=== PATIENT | female | born 1975 | race Caucasian/White ===

== ENCOUNTER → 2017-11-29 | Outpatient (REF) | payer OTHER ==
[2017-11-29 13:38] LABS: BASO % 0.5 % (0.0-1.0); EOS # 0.1 10^3/uL (0.0-0.50); EOS % 1.9 % (0.0-3.0); HEMATOCRIT 41.8 % (36.0-47.0); HEMOGLOBIN 14.1 g/dl (12.0-15.5); IMMATURE GRANULOCYTE % 0.2 % (0-3.0); LYMPH # 1.6 10^3/uL (1.5-4.5); LYMPH % 26.8 % (24.0-44.0); MEAN CORPUSCULAR HEMOGLOBIN 31.5 pg (27.0-33.0); MEAN CORPUSCULAR HGB CONC 33.7 g/dl (32.0-36.5); MEAN CORPUSCULAR VOLUME 93.3 fl (80.0-96.0); MONO # 0.3 10^3/uL (0.0-0.8); MONO % 5.1 % (0.0-5.0); NEUTROPHILS # 3.9 10^3/uL (1.8-7.7); NEUTROPHILS % 65.5 % (36.0-66.0); PLATELET COUNT, AUTOMATED 269 10^3/uL (150-450); RED BLOOD COUNT 4.48 10^6/uL (4.00-5.40); WHITE BLOOD COUNT 5.9 10^3/uL (4.0-10.0)
[2017-11-29 14:03] LABS: ERYTHROCYTE SEDIMENTATION RATE 8 mm/hr (0-20)
[2017-11-29 19:42] LABS: ALBUMIN/GLOBULIN RATIO 1.21 (1.00-1.93); ALKALINE PHOSPHATASE 66 U/L (45-117); ALT/SGPT 16 U/L (12-78); ANION GAP 11 MEQ/L (8-16); AST/SGOT 11 U/L (7-37); BILIRUBIN,TOTAL 0.6 MG/DL (0.2-1.0); BLOOD UREA NITROGEN 11 MG/DL (7-18); CARBON DIOXIDE LEVEL 21 MEQ/L (21-32); CHLORIDE LEVEL 109 MEQ/L (98-107); FOLATE 14.4 NG/ML (>5.4); GLOMERULAR FILTRATION RATE > 60.0 (>58); GLUCOSE, FASTING 86 MG/DL (70-100); POTASSIUM SERUM 4.4 MEQ/L (3.5-5.1); RHEUMATOID FACTOR QUANT < 10.0 IU/ML (<15.0); SODIUM LEVEL 141 MEQ/L (136-145); TOTAL PROTEIN 7.3 GM/DL (6.4-8.2)
[2017-11-29 23:51] LABS: ESTIMATED AVERAGE GLUCOSE 85 MG/DL (60-110); HEMOGLOBIN A1c 4.6 %
[2017-12-01 11:11] LABS: ALBUMIN % 61.8 % (55.8-66.1); ALPHA-1-GLOBULIN % 3.9 % (2.9-4.9)
[2017-12-01 11:12] LABS: ALBUMIN 4.51 GM/DL (3.29-5.55); ALPHA-1-GLOBULINS 0.28 GM/DL (0.17-0.41); ALPHA-2-GLOBULINS 0.64 GM/DL (0.42-0.99); ALPHA-2-GLOBULINS % 8.8 % (7.1-11.8); BETA-1-GLOBULINS 0.41 GM/DL (0.28-0.60); BETA-1-GLOBULINS % 5.6 % (4.7-7.2); BETA-2-GLOBULINS % 4.1 % (3.2-6.5); GAMMA GLOBULIN % 15.8 % (11.1-18.8); GAMMA GLOBULINS 1.15 GM/DL (0.65-1.58); TOTAL PROTEIN 7.3 GM/DL (6.4-8.2)
[2017-12-03 08:11] LABS: ANTI DOUBLE STRAND-DNA AB <1 IU/mL (0-9); ANTINUCLEAR ANTIBODIES DIRECT Negative (Negative); SJOGREN'S ANTI SS-A <0.2 AI (0.0-0.9); SJOGREN'S ANTI SS-B <0.2 AI (0.0-0.9); VITAMIN B1 LEVEL WHOLE BLOOD 98.2 nmol/L (66.5-200.0); VITAMIN B6,PYRIDOXAL PHOSPHATE 5.2 ug/L (2.0-32.8); VITAMIN E(ALPHA TOCOPHEROL) 11.7 mg/L (7.0-25.1); VITAMIN E(GAMMA TOCOPHEROL) 1.4 mg/L (0.5-5.5)
[2017-12-07 10:58] LABS: PTT LUPUS TYPE ANTICOAG SCREEN 0.9 (0-1.2)
== END ==
LOC: M LABNEURO 09:32
DX: R51 Headache (principal); R41.3 Other amnesia
CPT/HCPCS: 82746

== ENCOUNTER → 2017-12-26 | Outpatient (REF) | payer OTHER | LOC: M LAB REF 13:22 | DX: D22.5 Melanocytic nevi of trunk (principal); D22.71 Melanocytic nevi of right lower limb, including hip; L57.0 Actinic keratosis | CPT/HCPCS: 88305 ==

== ENCOUNTER → 2018-03-31 | Outpatient (REF) | payer OTHER ==
[~2018-03-31] MED LIST: ANUS2.5C2 TOP; COLA50CA3 PO; FOLIPOW28 XX; IBUP600T26 PO; MOM30SS PO; NORCOTAB PO; PRENTAB74 PO; VITA-112 PO; VITACAP9 PO
== END ==
LOC: M SFHCPLAZ 17:09
PROVIDERS: ATTEND Dermatology
DX: D23.61 Other benign neoplasm of skin of right upper limb, including shoulder (principal)

== ENCOUNTER → 2018-06-09 | Outpatient (CLI) | payer OTHER ==
--- NOTE | 2018-06-09 14:24 | REP ---
Chest two views HISTORY: Chest pain Comparison: 08/13/2009 The lungs are clear. The heart is normal in size. The pulmonary vasculature is normal in appearance. The bony structure is intact. IMPRESSION: No acute disease. Electronically Signed by Ryland Liz MD 06/09/2018 02:16 P
[2018-06-09 14:30] LABS: BASO % 0.6 % (0.0-1.0); EOS # 0.2 10^3/uL (0.0-0.50); EOS % 2.5 % (0.0-3.0); HEMATOCRIT 41.3 % (36.0-47.0); HEMOGLOBIN 14.1 g/dl (12.0-15.5); LYMPH # 1.7 10^3/uL (1.5-4.5); LYMPH % 24.2 % (24.0-44.0); MEAN CORPUSCULAR HEMOGLOBIN 31.7 pg (27.0-33.0); MEAN CORPUSCULAR HGB CONC 34.1 g/dl (32.0-36.5); MEAN CORPUSCULAR VOLUME 92.8 fl (80.0-96.0); MONO # 0.4 10^3/uL (0.0-0.8); NEUTROPHILS # 4.7 10^3/uL (1.8-7.7); NEUTROPHILS % 66.3 % (36.0-66.0); PLATELET COUNT, AUTOMATED 223 10^3/uL (150-450); RED BLOOD COUNT 4.45 10^6/uL (4.00-5.40); WHITE BLOOD COUNT 7.1 10^3/uL (4.0-10.0)
[2018-06-09 15:01] LABS: ALBUMIN 4.4 GM/DL (3.2-5.2); ALT/SGPT 13 U/L (12-78); BILIRUBIN,TOTAL 0.5 MG/DL (0.2-1.0); BLOOD UREA NITROGEN 11 MG/DL (7-18); CARBON DIOXIDE LEVEL 28 MEQ/L (21-32); CHLORIDE LEVEL 107 MEQ/L (98-107); CK-MB VALUE MASS < 1.0 NG/ML (<3.6); CPK CREATINE PHOSPHOKINASE 53 U/L (26-192); FREE T4 1.23 NG/DL (0.76-1.46); GLOMERULAR FILTRATION RATE > 60.0 (>58); GLUCOSE, FASTING 84 MG/DL (70-100); MB/CK RELATIVE INDEX 1.89 (< OR =4); POTASSIUM SERUM 4.3 MEQ/L (3.5-5.1); SODIUM LEVEL 140 MEQ/L (136-145); THYROID STIMULATING HORMONE 0.525 uIU/ML (0.358-3.740); TOTAL PROTEIN 7.1 GM/DL (6.4-8.2); TROPONIN I < 0.02 NG/ML (< 0.10)
== END ==
LOC: M WUC 13:11
PROVIDERS: ATTEND Physician Assistant
DX: R07.1 Chest pain on breathing (principal)

== ENCOUNTER → 2018-09-28 | Outpatient (REF) | payer OTHER | LOC: M SFHCPLAZ 18:03 | PROVIDERS: ATTEND Dermatology | DX: D49.2 Neoplasm of unspecified behavior of bone, soft tissue, and skin (principal) ==

== ENCOUNTER → 2019-12-21 | Outpatient (CLI) | payer OTHER ==
--- NOTE | 2019-12-21 10:03 | REPMRS ---
Patient History The patient states she had a clinical breast exam in 08/2019. Patient has history of other cancer at age 41. Family history of ovarian cancer at age 50 in maternal grandmother. No Hormone Replacement Therapy Diagnostic Bilateral Mammo: December 21, 2019 - Exam #: [id number] Bilateral CC and MLO view(s) were taken. Technologist: Cecilia Cadet, Technologist Prior study comparison: 2019, bilateral digital mammo screening bilat, performed at [facility]. FINDINGS: The breast tissue is extremely dense which could obscure a lesion on mammography. The Volpara volumetric breast density category is: D. There is an extremely dense symmetrical pattern of residual fibroglandular tissue. There has been no change in the appearance of the mammogram from the previous studies. There is no interval development of dominant mass, archetectural distortion, or grouped microcalcifications suggestive of malignancy. 3-D tomosynthesis shows no additional findings. Assessment: BI-RADS/ACR category 1 mammogram. Negative Mammogram. Recommendation Routine screening mammogram of both breasts in 1 year (for women over age 40). This patient's Lifetime Breast Cancer RIsk is estimated at 9.7 %. This mammogram was interpreted with the aid of an FDA-approved computer-aided dectection system. Electronically Signed By: Chalino Sauer MD 12/21/19 1002
== END ==
LOC: M WHC 09:17
PROVIDERS: ATTEND Nurse Practitioner
DX: N64.89 Other specified disorders of breast (principal); Z80.41 Family history of malignant neoplasm of ovary; Z85.9 Personal history of malignant neoplasm, unspecified
CPT/HCPCS: 77066; G0279

== ENCOUNTER → 2020-03-10 | Outpatient (REF) | payer OTHER ==
[2020-03-10 14:32] LABS: FREE T4 1.17 NG/DL (0.76-1.46); THYROID STIMULATING HORMONE 0.84 uIU/ML (0.358-3.740)
[2020-03-10 14:34] LABS: PROLACTIN 7.2 NG/ML
== END ==
LOC: M PLALAB 12:24
PROVIDERS: ATTEND Surgery
DX: N64.52 Nipple discharge (principal)

== ENCOUNTER → 2020-03-14 | Outpatient (CLI) | payer OTHER ==
--- NOTE | 2020-03-14 16:00 | REP ---
INDICATION: N64.52 LANEY NILLPLE DISCHARGE,LANEY RETROAREOLAR U/S. Intermittent bilateral nipple discharge for several years. COMPARISON: Comparison mammography 21 December 2019.. TECHNIQUE: Targeted retroareolar bilateral sonography. FINDINGS: Retroareolar sonography shows heterogeneous fibroglandular background echotexture bilaterally. No cyst, mass, dilated ducts or architectural distortion is seen. No suspicious sonographic feature. IMPRESSION: BI-RADS category 1-findings. No abnormality noted. <Electronically signed by Chalino Sauer > 03/14/20 [id number]
== END ==
LOC: M WHC 15:07
PROVIDERS: ATTEND Surgery
DX: N64.52 Nipple discharge (principal)

== ENCOUNTER → 2021-09-17 | Outpatient (CLI) | payer OTHER | LOC: M WHC 13:33 | PROVIDERS: ATTEND Surgery | DX: N63.20 Unspecified lump in the left breast, unspecified quadrant (principal) ==

== ENCOUNTER → 2021-11-30 | Outpatient (REF) | payer OTHER | LOC: M SFHCDERM 17:07 | PROVIDERS: ATTEND Nurse Practitioner Family | DX: L57.0 Actinic keratosis (principal) ==

== ENCOUNTER → 2022-04-01 | Outpatient (REF) | payer OTHER | LOC: M SFHCWAGY 13:16 | PROVIDERS: ATTEND Nurse Practitioner Family | DX: Z12.4 Encounter for screening for malignant neoplasm of cervix (principal) ==

== ENCOUNTER → 2022-04-05 | Outpatient (CLI) | payer OTHER | LOC: M WHC 09:32 | PROVIDERS: ATTEND Nurse Practitioner Family | DX: Z53.9 Procedure and treatment not carried out, unspecified reason (principal) ==

== ENCOUNTER → 2022-05-14 | Outpatient (CLI) | payer OTHER ==
[2022-05-14 16:52] LABS: ALKALINE PHOSPHATASE 78 U/L (46-116); ALT/SGPT 16 U/L (7.0-40); AST/SGOT 11 U/L (<34); BILIRUBIN,TOTAL 0.5 MG/DL (0.3-1.2); BLOOD UREA NITROGEN 10 MG/DL (9-23); CALCIUM LEVEL 9.2 MG/DL (8.5-10.1); CARBON DIOXIDE LEVEL 31 MMOL/L (20-31); CHLORIDE LEVEL 107 MMOL/L (98-107); CHOLESTEROL LEVEL 196 MG/DL (<200); CHOLESTEROL RISK RATIO 2.02 (<5); CREATININE FOR GFR 0.66 MG/DL (0.55-1.30); GLOMERULAR FILTRATION RATE > 60.0 (>58); GLUCOSE, FASTING 88 MG/DL (60-100); HDL CHOLESTEROL 96.9 MG/DL (>40); LDL CHOLESTEROL 85.9 MG/DL (<100); NON-HDL-C 99.1 MG/DL; POTASSIUM SERUM 4.4 MMOL/L (3.5-5.1); SODIUM LEVEL 142 MMOL/L (136-145); TRIGLYCERIDES LEVEL 66 MG/DL (<150)
== END ==
LOC: M WUC 12:07
PROVIDERS: ATTEND Internal Medicine
DX: E78.5 Hyperlipidemia, unspecified (principal)

== ENCOUNTER → 2024-09-17 | Outpatient (CLI) | payer OTHER, MEDICAID ==
[2024-09-17 19:11] LABS: BASO # 0.0 10^3/uL (0.0-0.2); BASO % 0.5 % (0.0-1.0); EOS # 0.1 10^3/uL (0.0-0.5); EOS % 2.1 % (0.0-3.0); LYMPH # 1.5 10^3/uL (1.5-5.0); LYMPH % 23.6 % (24.0-44.0); MONO # 0.4 10^3/uL (0.0-0.8); MONO % 6.1 % (2.0-8.0); NEUTROPHILS # 4.2 10^3/uL (1.5-8.5); NEUTROPHILS % 67.5 % (36.0-66.0); PLATELET COUNT, AUTOMATED 272 10^3/uL (150-450)
[2024-09-17 19:18] LABS: ERYTHROCYTE SEDIMENTATION RATE 6 mm/hr (0-20)
[2024-09-17 19:20] LABS: ALT/SGPT 13 U/L (7.0-40); AST/SGOT 18 U/L (<34); CALCIUM LEVEL 9.2 MG/DL (8.5-10.1); CARBON DIOXIDE LEVEL 29 MMOL/L (20-31); CHLORIDE LEVEL 107 MMOL/L (98-107); CREATININE FOR GFR 0.61 MG/DL (0.55-1.30); GLOMERULAR FILTRATION RATE > 90.0 (>58); POTASSIUM SERUM 4.6 MMOL/L (3.5-5.1); SODIUM LEVEL 145 MMOL/L (136-145)
[2024-09-17 19:21] LABS: TOTAL 25(OH) VITAMIN D 39.4 NG/ML (20.0-100.0)
[2024-09-17 19:22] LABS: VITAMIN B12 LEVEL 606 PG/ML (211-911)
[2024-09-17 19:30] LABS: RHEUMATOID FACTOR QUANT 5.8 IU/ML (<14)
== END ==
LOC: M WUC 13:13
PROVIDERS: ATTEND Psychiatry & Neurology Neurology
DX: R51.9 Headache, unspecified (principal)